=== PATIENT | female | born 1980 | race Caucasian/White ===

== ENCOUNTER 2017-07-05 05:32 | Day surgery (SDC) | payer OTHER ==
[2017-07-04 12:43] LABS: HEMOGLOBIN 13.7 g/dL (12.0-15.5); MEAN CORPUSCULAR HEMOGLOBIN 30.7 pg (27.0-33.4); MEAN CORPUSCULAR HGB CONC 34.3 g/dL (32.0-36.0); MEAN CORPUSCULAR VOLUME 90 fl (80-97); PLATELET COUNT 344 10^3/uL (150-450); RED BLOOD COUNT 4.47 10^6/uL (3.72-5.28); RED CELL DISTRIBUTION WIDTH 13.1 % (11.5-14.0); WHITE BLOOD COUNT 7.5 10^3/uL (4.0-10.5)
[2017-07-04 12:50] LABS: APPEARANCE,URINE CLEAR; BILIRUBIN,URINE NEGATIVE (NEGATIVE); COLOR,URINE YELLOW; GLUCOSE, URINE NEGATIVE (NEGATIVE); KETONES,URINE NEGATIVE (NEGATIVE); LEUKOCYTE ESTERASE,URINE NEGATIVE (NEGATIVE); NITRITE,URINE NEGATIVE (NEGATIVE); PROTEIN,URINE NEGATIVE (NEGATIVE); URINE SPECIFIC GRAVITY 1.019; UROBILINOGEN,URINE NEGATIVE mg/dL (<2.0)
[~2017-07-05 05:32] MED LIST: LACTATED RINGERS 1000 ML IV PRN; LIDOCAINE 0.5% INJ-PF (5 MG/ML) 50 ML SDV SUBCUT PRN
[2017-07-05] MEDS ORDERED: MIDAZOLAM 2 MG/2 ML INJ ONE (07:02)
[2017-07-05] MEDS ORDERED: HYDROMORPHONE HCL INJ/PF 2 MG/ML AMPULE ONE (07:02)
[2017-07-05] MEDS ORDERED: PROPOFOL INJ 200 MG/20 ML VIAL IV ONE (07:03)
[2017-07-05] MEDS ORDERED: ACETAMINOPHEN 100 ML IV ONE (07:03)
[2017-07-05] MEDS ORDERED: ONDANSETRON HCL INJ/PF 4 MG/2 ML SDV IV PRN (08:02)
[2017-07-05] MEDS ORDERED: OXYCODONE-ACETAMINOPHEN 5-325 MG TABLET PO PRN ×4 (08:02→08:41)
[2017-07-05] MEDS ORDERED: FENTANYL CITRATE INJ/PF 100 MCG/2 ML AMPUL IV PRN ×3 (08:02)
[2017-07-05] MEDS ORDERED: DIPHENHYDRAMINE HCL 50 MG/ML VIAL IV PRN (08:02)
[2017-07-05] MEDS ORDERED: MEPERIDINE HCL/PF INJ 25 MG/1 ML DISP.SYRIN IV PRN (08:02)
[2017-07-05] MEDS ORDERED: PROMETHAZINE HCL INJ 25 MG/1 ML VIAL IV PRN ×2 (08:02)
[2017-07-05] MEDS ORDERED: MORPHINE SULFATE 10 MG/ML INJ IM PRN (08:39)
[2017-07-05] MEDS ORDERED: IBUPROFEN 800 MG TABLET PO PRN (08:40)
--- NOTE | 2017-07-05 08:53 | OPERATIVE REPORT E ---
Operative Report NAME: CARLOS MEDINA : 1980 AGE: 37Y DATE OF SURGERY: 07/05/2017 ROOM: PREOPERATIVE DIAGNOSIS: Undesired fertility. POSTOPERATIVE DIAGNOSIS: Undesired fertility. OPERATION: Laparoscopic tubal cauterization. SURGEON: JARRED HERNANDEZ MD ANESTHESIA: Rosendo Dow MD, with a general. FINDINGS: Normal tubes and ovaries. A small uterine fibroid on the posterior fundus. COMPLICATIONS: None. ESTIMATED LOSS: 20 mL. SPECIMENS REMOVED: None. PROCEDURE IN DETAIL: The patient was taken to the operating room, prepared, and draped in a normal sterile fashion in dorsal lithotomy position under sterile conditions. An in-and-out catheter was performed of approximately 10 mL of clear urine. Sterile speculum was then placed into the vagina the cervix was grasped with a single-tooth tenaculum. The cervix was sounded to approximately 10 cm with uterine sound and the Hulka clamp for uterine manipulation was placed. The single-tooth tenaculum was removed and sterile speculum was removed. Gloves were changed and attention was turned to the upper portion of the case, where an umbilical skin incision was made with scalpel and the Veress needle was introduced into the peritoneal cavity and placement was confirmed with free flow of sterile water through the incision. The abdomen was then insufflated with approximately 2 liters of CO2 gas and the Veress needle was removed and the 5 mm trocar was placed through this incision. The camera was introduced and confirmation of peritoneal placement was made. The patient was then placed into steep Trendelenburg. Under direct visualization, another 5 mm port was placed in the left lower quadrant through which a blunt probe was introduced and uterine manipulation was performed with a Hulka clamp and the bowel was swept away with the blunt probe. Blunt probe was removed and then the Kleppinger was introduced through this incision. Starting with right fallopian tube, which presented itself more readily, the right fallopian tube was well cauterized of greater than 3 cm for fallopian tube desiccation. This was repeated on the left without difficulty. Pictures were taken and the Kleppinger was removed. The lower trocar was then removed. The camera was removed and the abdomen was deflated through the umbilical trocar. Once the free flow of gas was minimal, we removed that trocar. The skin was then closed with 4-0 Vicryl. The patient tolerated the procedure well. Sponge, lap and needle counts were correct x2. The patient was taken to recovery in stable condition. DICTATING PHYSICIAN: JARRED HERNANDEZ M.D. [id number] PHY#: [id number] ID: [id number] JOB#: [id number] ACCT: [id number] cc:JARRED HERNANDEZ M.D. >
[2017-07-05] MEDS ORDERED: DIPHENHYDRAMINE HCL 25 MG CAPSULE ONE ×2 (09:17→09:18)
[2017-07-05 10:19] VITALS: BP 109/70
[2017-07-05] MEDS ORDERED: ONDANSETRON HCL INJ/PF 4 MG/2 ML SDV ONE (13:30)
[2017-07-05] MEDS ORDERED: METOCLOPRAMIDE HCL INJ/PF 10 MG/2 ML SDV ONE (13:30)
[2017-07-05] MEDS ORDERED: KETOROLAC TROMETHAMINE 60 MG/2 ML SDV ONE (13:30)
[2017-07-05] MEDS ORDERED: LIDOCAINE 2% INJ-PF (20 MG/ML) 2 ML AMPUL ONE (13:30)
[2017-07-05] MEDS ORDERED: NEOSTIGMINE METHYLSULFATE 10 MG/10 ML VIAL ONE (13:30)
[2017-07-05] MEDS ORDERED: SUCCINYLCHOLINE CHLORIDE INJ 200 MG/10 ML VIAL ONE (13:30)
[2017-07-05] MEDS ORDERED: ROCURONIUM BROMIDE INJ 50 MG/5 ML VIAL IV ONE (13:30)
[2017-07-05] MEDS ORDERED: GLYCOPYRROLATE INJ 0.4 MG/2 ML VIAL ONE (13:30)
[2017-07-05] MEDS ORDERED: DEXAMETHASONE SOD PHOSPHATE INJ 4 MG/1 ML VIAL ONE (13:30)
== END 2017-07-05 10:22 | disposition home or self-care (01) ==
LOC: OROUT 05:32
PROVIDERS: ATTEND Obstetrics & Gynecology
DX: Z30.2 Encounter for sterilization (principal); D25.9 Leiomyoma of uterus, unspecified
CPT/HCPCS: 36415; 85027; 81005; 81025; 58670; J2250; J3490 ×2; J1100; J1885; J2765; J1170; J0330; J2405; J2704; J0131; 851